=== PATIENT | female | born 1955 | race Caucasian/White ===

== ENCOUNTER 2019-01-07 11:51 | Inpatient (IN) | payer MEDICARE ==
[~2019-01-07] VITALS: Ht 149.9 cm; Wt 46.3 kg
--- NOTE | 2019-01-07 12:06 | NUR ---
PTS SPO2 80% ON ROOM AIR, PT PLACED ON 4L NC IN TRIAGE. SPO2 94% NOW. EKG COMPLETED IN TRIAGE. MASK PLACED IN TRIAGE.
--- NOTE | 2019-01-07 12:12 | NUR ---
FIELD ASSESSOR: PT TO ROOM VIA WHEELCHAIR FROM TRIAGE ROOM
[2019-01-07] MEDS ORDERED: SODIUM CHLORIDE FLUSH 10ML SYR IVF ONE (12:30)
[2019-01-07] MEDS ORDERED: ALBUTEROL/IPRATROPIUM 2.5MG/0.5MG, 3 ML ONE ×2 (12:41→16:54)
[2019-01-07 12:56] LABS: BASOPHILS # (AUTO) 0.05 x10^3/uL (0-0.1); BASOPHILS % (AUTO) 0 % (0-1); EOSINOPHILS # (AUTO) 0.01 x10^3/uL (0-0.4); EOSINOPHILS % (AUTO) 0 % (1-7); LYMPHOCYTES # (AUTO) 3.27 x10^3/uL (1-3.4); LYMPHOCYTES % (AUTO) 20 % (22-44); MD NO; MEAN CORPUSCULAR HEMOGLOBIN 27.2 pg (27.0-34.8); MEAN CORPUSCULAR HGB CONC 32.3 g/dL (32.4-35.8); MEAN PLATELET VOLUME 7.9 fL (7.4-10.4); MONOCYTES % (AUTO) 9 % (2-9); NEUTROPHILS # (AUTO) 11.68 x10^3/uL (1.8-6.8); NEUTROPHILS % (AUTO) 71 % (42-75); PLATELET COUNT 317 x10^3/uL (130-400); RED BLOOD COUNT 4.89 x10^6/uL (3.82-5.3); RED CELL DISTRIBUTION WIDTH 13.7 % (9.6-15.2)
[2019-01-07] MEDS ORDERED: CLON2TAB9 PO (12:56)
[2019-01-07] MEDS ORDERED: ALBU8.5H8 INH (12:56)
[2019-01-07] MEDS ORDERED: PRAV40TA2 PO (12:56)
--- NOTE | 2019-01-07 13:00 | NUR ---
First contact with pt. Pt c/o cough/SOB x10 days. Pt states hx of COPD, no relief with home inhalers. Pt with frequent loose cough, insp and exp wheezing throughout. Pt placed in gown, positioned for comfort in bed with warm blanket. Continuous heart, oxygen and BP Monitors applied, all safety measures observed.
[2019-01-07 13:05] LABS: ALANINE AMINOTRANSFERASE 31 U/L (12-78); ALBUMIN 3.4 g/dL (3.4-5.0); ANION GAP 9 mmol/L (5-15); CHLORIDE 103 mmol/L (98-107)
--- NOTE | 2019-01-07 13:05 | NUR ---
Pt provided with warm blanket per request, denies other needs.
[2019-01-07 13:10] LABS: ALKALINE PHOSPHATASE 56 U/L (45-117); BILIRUBIN,TOTAL 0.6 mg/dL (0.2-1.0); CREATININE 0.64 mg/dL (0.55-1.02); TOTAL PROTEIN 6.4 g/dL (6.4-8.2)
[2019-01-07 13:11] LABS: RAPID INFLUENZA A Negative (Negative); RAPID INFLUENZA B Negative (Negative)
--- NOTE | 2019-01-07 13:18 | NUR ---
Pt states she is feeling better after the breathing tx. Pt still with wheezing noted throughout.
[2019-01-07] MEDS ORDERED: CEFTRIAXONE PMX 1GM/50ML 50 ML IVPB ONE (13:30)
[2019-01-07] MEDS ORDERED: AZITHROMYCIN 500 MG in SODIUM CHLORIDE 0.9% 250 ML IVPB ONE (13:30)
--- NOTE | 2019-01-07 13:30 | NUR ---
Dr. Romero at bedside to discuss POC with pt.
[2019-01-07] MEDS ORDERED: CEFTRIAXONE PMX 1GM/50ML 50 ML ONE (13:35)
[2019-01-07] MEDS ORDERED: SODIUM CHLORIDE FLUSH 10ML SYR IVF PRN (14:00)
[2019-01-07] MEDS ORDERED: POTASSIUM CHLORIDE 20 MEQ TAB.ER.PRT PO ONE (14:00)
[2019-01-07] MEDS ORDERED: POTASSIUM CHLORIDE 20 MEQ TAB.ER.PRT ONE (14:36)
[2019-01-07] MEDS: CEFTRIAXONE PMX 1GM/50ML 50 ML IV SCH (15:00)
--- NOTE | 2019-01-07 15:02 | NUR ---
Report called to [facility]OL[facility]. Floor ready for pt transport.
[2019-01-07 15:33] VITALS: BP 124/79
[2019-01-07] MEDS: methylPREDNISolone SOD SUCC 125 MG/2 ML IVPush SCH ×2 (15:54→21:49)
[2019-01-07] MEDS: GUAIFENESIN 200 MG TABLET PO SCH ×2 (15:54→20:24)
[2019-01-07] MEDS: ENOXAPARIN 40 MG/0.4 ML SQ SCH (16:30)
[2019-01-07] MEDS: ALBUTEROL/IPRATROPIUM 2.5MG/0.5MG, 3 ML NPPB SCH (17:01)
[2019-01-07] MEDS: DOXYCYCLINE 100MG TABLET PO SCH (20:24)
[2019-01-07] MEDS: PRAVASTATIN 40 MG TABLET PO SCH (20:24)
[2019-01-07 20:32] VITALS: BP 107/58
[2019-01-08 00:18] VITALS: BP 101/54
[2019-01-08] MEDS: methylPREDNISolone SOD SUCC 125 MG/2 ML IVPush SCH ×4 (04:19→22:10)
[2019-01-08] MEDS: GUAIFENESIN 200 MG TABLET PO SCH ×4 (05:12→20:31)
[2019-01-08 05:26] LABS: BASOPHILS % (AUTO) 0 % (0-1); EOSINOPHILS % (AUTO) 0 % (1-7); LYMPHOCYTES # (AUTO) 1.02 x10^3/uL (1-3.4); LYMPHOCYTES % (AUTO) 9 % (22-44); MD NO; MEAN CORPUSCULAR HEMOGLOBIN 27.5 pg (27.0-34.8); MEAN CORPUSCULAR HGB CONC 32.7 g/dL (32.4-35.8); MEAN CORPUSCULAR VOLUME 84.2 fL (80-100); MEAN PLATELET VOLUME 7.9 fL (7.4-10.4); MONOCYTES # (AUTO) 0.43 x10^3/uL (0.2-0.8); MONOCYTES % (AUTO) 4 % (2-9); NEUTROPHILS # (AUTO) 9.47 x10^3/uL (1.8-6.8); NEUTROPHILS % (AUTO) 87 % (42-75); PLATELET COUNT 279 x10^3/uL (130-400); RED BLOOD COUNT 4.17 x10^6/uL (3.82-5.3); RED CELL DISTRIBUTION WIDTH 13.8 % (9.6-15.2)
[2019-01-08 05:29] LABS: CHLORIDE 105 mmol/L (98-107)
[2019-01-08 05:45] LABS: ALANINE AMINOTRANSFERASE 27 U/L (12-78); ALBUMIN 2.7 g/dL (3.4-5.0); ALKALINE PHOSPHATASE 56 U/L (45-117); ANION GAP 6 mmol/L (5-15); BILIRUBIN,TOTAL 0.3 mg/dL (0.2-1.0); CALCIUM 8.4 mg/dL (8.5-10.1); CREATININE 0.51 mg/dL (0.55-1.02); TOTAL PROTEIN 5.5 g/dL (6.4-8.2)
[2019-01-08 07:55] VITALS: BP 107/61
[2019-01-08] MEDS: ALBUTEROL/IPRATROPIUM 2.5MG/0.5MG, 3 ML NPPB SCH ×3 (09:00→21:00)
[2019-01-08] MEDS: DOXYCYCLINE 100MG TABLET PO SCH ×2 (09:58→20:56)
[2019-01-08] MEDS ORDERED: CEFTRIAXONE PMX 1GM/50ML 50 ML IV SCH (10:00)
[2019-01-08] MEDS: GUAIFENESIN/DM 200-20MG, 10ML UDC PO PRN ×2 (11:10→16:54)
[2019-01-08 12:51] VITALS: BP 105/61
[2019-01-08] MEDS: CEFTRIAXONE PMX 1GM/50ML 50 ML IV SCH (16:02)
[2019-01-08] MEDS: ENOXAPARIN 40 MG/0.4 ML SQ SCH (16:54)
[2019-01-08 19:15] VITALS: BP 103/56
[2019-01-08] MEDS: PRAVASTATIN 40 MG TABLET PO SCH (20:55)
[2019-01-09 01:25] VITALS: BP 117/57
[2019-01-09] MEDS: methylPREDNISolone SOD SUCC 125 MG/2 ML IVPush SCH ×4 (04:07→22:06)
[2019-01-09 05:17] LABS: BASOPHILS # (AUTO) 0.02 x10^3/uL (0-0.1); BASOPHILS % (AUTO) 0 % (0-1); EOSINOPHILS % (AUTO) 0 % (1-7); LYMPHOCYTES % (AUTO) 7 % (22-44); MD NO; MEAN CORPUSCULAR HEMOGLOBIN 28.1 pg (27.0-34.8); MEAN CORPUSCULAR HGB CONC 33.4 g/dL (32.4-35.8); MEAN CORPUSCULAR VOLUME 84.3 fL (80-100); MEAN PLATELET VOLUME 7.5 fL (7.4-10.4); MONOCYTES # (AUTO) 0.55 x10^3/uL (0.2-0.8); MONOCYTES % (AUTO) 3 % (2-9); NEUTROPHILS # (AUTO) 14.62 x10^3/uL (1.8-6.8); NEUTROPHILS % (AUTO) 89 % (42-75); PLATELET COUNT 309 x10^3/uL (130-400); RED BLOOD COUNT 3.91 x10^6/uL (3.82-5.3)
[2019-01-09] MEDS: GUAIFENESIN 200 MG TABLET PO SCH ×4 (05:23→20:46)
[2019-01-09 05:29] LABS: ALBUMIN 2.6 g/dL (3.4-5.0); ANION GAP 6 mmol/L (5-15); CALCIUM 8.4 mg/dL (8.5-10.1); CHLORIDE 105 mmol/L (98-107)
[2019-01-09 05:32] LABS: ALANINE AMINOTRANSFERASE 33 U/L (12-78); ALKALINE PHOSPHATASE 49 U/L (45-117); BILIRUBIN,TOTAL 0.2 mg/dL (0.2-1.0); CREATININE 0.54 mg/dL (0.55-1.02); TOTAL PROTEIN 5.3 g/dL (6.4-8.2)
[2019-01-09] MEDS: ALBUTEROL/IPRATROPIUM 2.5MG/0.5MG, 3 ML NPPB SCH ×3 (07:49→19:46)
[2019-01-09 08:07] VITALS: BP 122/65
[2019-01-09] MEDS: DOXYCYCLINE 100MG TABLET PO SCH ×2 (08:37→20:46)
[2019-01-09 13:55] VITALS: BP 117/61
[2019-01-09] MEDS: ENOXAPARIN 40 MG/0.4 ML SQ SCH (16:33)
[2019-01-09] MEDS: CEFTRIAXONE PMX 1GM/50ML 50 ML IV SCH (16:33)
[2019-01-09 18:40] VITALS: BP 110/56
[2019-01-09] MEDS: PRAVASTATIN 40 MG TABLET PO SCH (20:46)
[2019-01-10 00:05] VITALS: BP 129/56
[2019-01-10] MEDS: methylPREDNISolone SOD SUCC 125 MG/2 ML IVPush SCH (04:14)
[2019-01-10] MEDS: GUAIFENESIN 200 MG TABLET PO SCH (05:29)
[2019-01-10 05:35] LABS: BASOPHILS # (AUTO) 0.01 x10^3/uL (0-0.1); BASOPHILS % (AUTO) 0 % (0-1); EOSINOPHILS % (AUTO) 0 % (1-7); LYMPHOCYTES # (AUTO) 1.09 x10^3/uL (1-3.4); LYMPHOCYTES % (AUTO) 7 % (22-44); MD NO; MEAN CORPUSCULAR HEMOGLOBIN 28.5 pg (27.0-34.8); MEAN CORPUSCULAR HGB CONC 33.5 g/dL (32.4-35.8); MEAN CORPUSCULAR VOLUME 85.1 fL (80-100); MEAN PLATELET VOLUME 7.9 fL (7.4-10.4); MONOCYTES % (AUTO) 5 % (2-9); NEUTROPHILS # (AUTO) 13.47 x10^3/uL (1.8-6.8); NEUTROPHILS % (AUTO) 88 % (42-75); PLATELET COUNT 307 x10^3/uL (130-400); RED BLOOD COUNT 3.87 x10^6/uL (3.82-5.3); RED CELL DISTRIBUTION WIDTH 14.1 % (9.6-15.2)
[2019-01-10 05:44] LABS: ALANINE AMINOTRANSFERASE 40 U/L (12-78); ALBUMIN 2.5 g/dL (3.4-5.0); ANION GAP 8 mmol/L (5-15); CALCIUM 8.3 mg/dL (8.5-10.1); CHLORIDE 105 mmol/L (98-107); CREATININE 0.54 mg/dL (0.55-1.02)
[2019-01-10 05:46] LABS: ALKALINE PHOSPHATASE 48 U/L (45-117); BILIRUBIN,TOTAL 0.1 mg/dL (0.2-1.0); TOTAL PROTEIN 5.2 g/dL (6.4-8.2)
[2019-01-10] MEDS ORDERED: GUAI200T3 PO (06:26)
[2019-01-10] MEDS ORDERED: CEFD300C37 PO (06:26)
[2019-01-10] MEDS ORDERED: DOXY100T PO (06:26)
[2019-01-10] MEDS ORDERED: PRED10TA PO (06:26)
[2019-01-10] MEDS ORDERED: BUDE10.2 INH (06:27)
[2019-01-10] MEDS ORDERED: CEFTRIAXONE PMX 1GM/50ML 50 ML IV SCH (06:30)
[2019-01-10] MEDS ORDERED: OMEP-110 PO (06:32)
[2019-01-10 07:34] VITALS: BP 131/72
[2019-01-10] MEDS: ALBUTEROL/IPRATROPIUM 2.5MG/0.5MG, 3 ML NPPB SCH (09:00)
[2019-01-10] MEDS: DOXYCYCLINE 100MG TABLET PO SCH (09:17)
== END 2019-01-10 09:39 | disposition home or self-care (01) | DRG 871 ==
LOC: ED 13:37 → EDIP 14:18 → 4NOR 15:20 → DCLOUNGE 01-10 09:28
PROVIDERS: ADMIT Hospitalist; ATTEND Hospitalist
DX: A41.9 Sepsis, unspecified organism (principal); J15.9 Unspecified bacterial pneumonia; J96.01 Acute respiratory failure with hypoxia; E44.0 Moderate protein-calorie malnutrition; Z68.20 Body mass index [BMI] 20.0-20.9, adult; J43.9 Emphysema, unspecified; E78.5 Hyperlipidemia, unspecified; E87.6 Hypokalemia; F17.210 Nicotine dependence, cigarettes, uncomplicated; G25.81 Restless legs syndrome; Z82.49 Family history of ischemic heart disease and other diseases of the circulatory system; Z90.710 Acquired absence of both cervix and uterus
CPT/HCPCS: 36415; 71045; 80053; 83605; 83735; 83880; 84100; 84145; 85025; 87040; 87070; 87205; 87400; 93005; 94640; 96365; 96366; G0378; J0456; J0696; J1650; J7620; J2930; J7050; J7512